=== PATIENT | female | born 1985 | race Caucasian/White ===

== ENCOUNTER 2017-08-17 20:50 | Emergency (ER) | payer OTHER ==
[~2017-08-17] VITALS: Ht 162.6 cm; Wt 61.2 kg
[~2017-08-17 20:50] MED LIST: AMBIEN 5 MG TABL5 M1 PO; BACTRIM DS TAB1 EACH PO; CLEOCIN HCL150 MG PO; CLONAZEPAM; CLONAZEPAM PO; IBUPROFEN 600600 M1 PO; KEFLEX250 MG PO; NORCO 5-325 TA1 EACH PO; PHENERGAN25 M2 RC; ZOFRAN 4 MG ORAL4 M1 DIS; ZOFRAN ODT4 MG PO
[2017-08-17 21:05] VITALS: BP 144/97
[2017-08-17] MEDS ORDERED: AUGMENTIN 875-1 EACH PO (21:29)
[2017-08-17] MEDS ORDERED: IBUPROFEN 600600 M1 PO (21:29)
[2017-08-17] MEDS ORDERED: CORTISPORIN OTI10 M2 OTIC (21:29)
== END 2017-08-17 21:43 | disposition home or self-care (01) ==
LOC: ER 20:50
DX: H60.93 Unspecified otitis externa, bilateral (principal); H66.91 Otitis media, unspecified, right ear; H60.11 Cellulitis of right external ear; F41.9 Anxiety disorder, unspecified; I42.9 Cardiomyopathy, unspecified; Z95.0 Presence of cardiac pacemaker

== ENCOUNTER 2017-12-07 01:14 | Emergency (ER) | payer OTHER ==
[~2017-12-07] VITALS: Ht 165.1 cm; Wt 63.5 kg
[~2017-12-07 01:14] MED LIST changes: +AUGMENTIN 875-1 EACH PO; +CORTISPORIN OTI10 M2 OTIC
[2017-12-07] MEDS ORDERED: PREDNISONE 20 M20 MG PO (01:43)
[2017-12-07] MEDS ORDERED: KEFLEX500 M1 PO (01:43)
[2017-12-07] MEDS ORDERED: ACTICIN 5% CREA60 G1 TOP (01:43)
[2017-12-07 01:58] LABS: URINE BILIRUBIN NEGATIVE (Negative); URINE BLOOD TRACE (Negative); URINE CLARITY CLOUDY; URINE COLOR YELLOW; URINE GLUCOSE-RANDOM* NEGATIVE (Negative); URINE KETONES NEGATIVE (Negative); URINE NITRITE-REFLEX NEGATIVE (Negative); URINE PROTEIN (DIPSTICK) NEGATIVE (Negative); URINE SPECIFIC GRAVITY >= 1.030 (1.005-1.035); URINE UROBILINOGEN 0.2 E.U./dl (0.2-1.0)
[2017-12-07 01:59] LABS: URINE LEUKOCYTES-REFLEX 2+ (Negative)
[2017-12-07 02:09] LABS: CASTS None Seen /LPF (None Seen); CRYSTALS None Seen /LPF (None Seen); MUCUS 4-6 Moderate strn/LPF (None Seen); SQUAMOUS >10 Many /LPF (0-3); URINE RBC 3-10 Few /HPF (0-2); URINE WBC-REFLEX >25 Many /HPF (0-5)
[2017-12-07 02:50] VITALS: BP 139/84
== END 2017-12-07 02:51 | disposition home or self-care (01) ==
LOC: ER 01:14
PROVIDERS: Emergency Medicine
DX: L03.116 Cellulitis of left lower limb (principal); B86 Scabies; B35.3 Tinea pedis; N39.0 Urinary tract infection, site not specified; A59.9 Trichomoniasis, unspecified

== ENCOUNTER 2018-01-14 02:07 | Emergency (ER) | payer OTHER ==
[~2018-01-14] VITALS: Ht 165.1 cm; Wt 63.5 kg
[~2018-01-14 02:07] MED LIST changes: +ACTICIN 5% CREA60 G1 TOP; +KEFLEX500 M1 PO; +PREDNISONE 20 M20 MG PO
[2018-01-14] MEDS ORDERED: BACTRIM DS TAB1 EACH PO (02:27)
[2018-01-14] MEDS ORDERED: IBUPROFEN 600600 M1 PO (02:27)
[2018-01-14 03:29] VITALS: BP 115/66
== END 2018-01-14 03:36 | disposition home or self-care (01) ==
LOC: ER 02:07
DX: L03.116 Cellulitis of left lower limb (principal); F41.9 Anxiety disorder, unspecified; I42.9 Cardiomyopathy, unspecified; Z95.0 Presence of cardiac pacemaker